=== PATIENT | female | born 1950 | race Caucasian/White ===

== ENCOUNTER → 2022-02-19 | Outpatient (CLI) | payer MEDICARE, OTHER | LOC: CT 08:00 | PROVIDERS: Nurse Practitioner Psychiatric/Mental Health | DX: R09.89 Other specified symptoms and signs involving the circulatory and respiratory systems (principal); N18.31 Chronic kidney disease, stage 3a; I65.22 Occlusion and stenosis of left carotid artery | CPT/HCPCS: 36415; 70498; 76536; 80048; Q9967 ==